=== PATIENT | female | born 1970 | race Caucasian/White ===

== ENCOUNTER 2022-07-17 18:01 | Emergency (ER) | payer SELFPAY ==
--- NOTE | 2022-07-17 18:04 | XRR_ITS ---
PROCEDURE INFORMATION: Exam: XR Chest Exam date and time: 07/17/2022 6:16 PM Age: 52 years old Clinical indication: Chest wall pain; Additional info: Cp TECHNIQUE: Imaging protocol: Radiologic exam of the chest. Views: 1 view. COMPARISON: No relevant prior studies available. FINDINGS: Lungs: Unremarkable. No consolidation. Pleural spaces: Unremarkable. No pleural effusion. No pneumothorax. Heart/Mediastinum: Unremarkable. No cardiomegaly. Bones/joints: Unremarkable. XR/XR chest 1V portable [id number] IMPRESSION: No acute findings.
[2022-07-17 18:05] VITALS: BP 151/86; PULSE 92; RESP 18; TEMP 36.7; O2SAT 97; BMI 31.3
--- NOTE | 2022-07-17 18:07 | ECG_ITS ---
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 Measurements Intervals [place] Rate: 91 P: 114 NE: 162 QRS: 90 QRSD: 89 T: 134 QT: 366 QTc: 451 Interpretive Statements SINUS RHYTHM No previous ECG available for comparison Electronically Signed On 07-17-2022 20:26:22 CDT by Yaquelin Zuñiga M.D. [id number]
[2022-07-17 18:19] LABS: Basophils # 0.1 10^3/uL (0.0-0.1); Basophils % 0.7 %; Eosinophils # 0.5 10^3/uL (0.0-0.8); Eosinophils % 5.6 %; Hematocrit 43.1 % (37.0-47.0); Hemoglobin 14.1 g/dL (11.5-15.3); Lymphocytes # 3.8 10^3/uL (0.8-4.8); Lymphocytes % 41.7 %; Mean Corpuscular HGB Conc 32.7 g/dL (30.0-36.0); Mean Corpuscular Hemoglobin 31.5 pg (28.0-34.0); Mean Corpuscular Volume 96.4 fl (81-99); Mean Platelet Volume 9.8 fL (7.4-10.4); Monocytes # 0.6 10^3/uL (0.2-0.9); Neutrophils # 4.04 10^3/uL (1.8-7.7); Neutrophils % 44.7 %; Nucleated Red Blood Cells % 0 %; Platelet Count 292 10^3/cmm (130-400); Red Blood Count 4.47 10^6/uL (4.1-5.3); Red Cell Distribution Width 13.1 % (12.1-15.1)
--- NOTE | 2022-07-17 18:21 | W.ED.CHESTPA ---
HPI - Chest Pain General: Chief Complaint: Chest Pain Stated Complaint: CHEST PAIN Time Seen by Provider: 07/17/22 18:04 Source: patient and EMS Mode of arrival: EMS Limitations: no limitations History of Present Illness: 52-year-old female states she started having chest pain roughly 30 minutes ago. States it was a very sharp pain in the center of her chest region is an 8 out of 10 states it is now a 2 out of 10 she did receive aspirin in route denies any shortness of breath she has no heart history she is a smoker. Denies any diaphoresis or nausea. Associated symptoms: Deny abdominal pain, dyspnea, fever(s), nausea or vomiting Review of Systems Const: Denies: fever(s), chills, body aches or change in appetite Eyes: Denies: blurry vision or eye discomfort ENMT: Denies: throat pain or dental pain Card: Reports: chest pain Resp: Denies: dyspnea GI: Denies: abdominal pain, nausea, vomiting or diarrhea : Denies: dysuria Musc: Denies: neck pain or back pain Skin/Breast: Denies: rash Neuro: Denies: headache(s) Psych: Denies: depression Alfie/Lymph: Denies: easy bruising All/Imm: Denies: urticaria PFSH ED PFSH: Medical History (Updated 07/17/22 @ 20:21 by Yulia Sagastume MD) No pertinent past medical history Social History (Updated 07/17/22 @ 18:22 by Yulia Sagastume MD) Substance/Drug Use: never Physical Exam Const: COMMON NORMALS: no acute distress, patient oriented x3 and healthy appearing HENMT: COMMON NORMALS: normocephalic and atraumatic HEAD & SCALP: normocephalic and atraumatic Eye: COMMON NORMALS: Equal, round and reactive pupils present and EOMs intact bilaterally PUPIL: Yes Equal, round and reactive pupils present Neck/C-Spine: COMMON NORMALS: full ROM and supple Chest: COMMONS NORMALS: normal inspection of the chest and normal palpation of entire chest wall Resp: COMMON NORMALS: normal respiratory effort, No retractions, No use of accessory muscles and clear to auscultation bilaterally AUSCULTATION: clear to auscultation bilaterally Cardio: COMMON NORMALS: regular rate, regular rhythm and No murmurs present (Cardio) RATE: regular rate RHYTHM: regular rhythm GI: COMMON NORMALS: Normal to inspection, nondistended, normoactive bowel sounds present, Soft to palpation, non-tender and no masses PALPATION: Yes Soft to palpation Extremity: COMMON NORMALS: normal to inspection and full ROM Neuro: COMMON NORMALS: patient oriented x3, moves all extremities and no focal motor deficits Psych: COMMON NORMALS: mental status grossly normal, Normal thought process present and cooperative THOUGHT PROCESS: Normal thought process present Skin: COMMON NORMALS: no rashes or lesions noted and no wounds GENERAL SKIN EXAM: no rashes or lesions noted Course Vital Signs: Vital signs: Vital Signs Temperature 98.0 F 07/17/22 18:05 Pulse Rate 92 07/17/22 20:13 Respiratory Rate 18 07/17/22 20:13 Blood Pressure 145/87 07/17/22 20:13 Pulse Oximetry 97 07/17/22 20:13 Oxygen Delivery Me thod 07/17/22 18:05 MDM - Chest Pain Medical Decision Making Patient presents here with chest pains atypical in nature its been resolved here her initial repeat troponin here negative she has no signs of dissection pulmonary embolism or acute coronary syndrome I did speak to her about the findings she feels much improved would like to go home she is stable for discharge we will get her follow-up with cardiology she is return if worsening. Lab Data : 07/17/22 17:55 07/17/22 17:55 Radiology Impressions Chest X-Ray 07/17/22 18:04 IMPRESSION: No acute findings. Laboratory Results WBC 9.0 10^3/uL (4.0-10.0) 07/17/22 17:55 RBC 4.47 10^6/uL (4.1-5.3) 07/17/22 17:55 Hgb 14.1 g/dL (11.5-15.3) 07/17/22 17:55 Hct 43.1 % (37.0-47.0) 07/17/22 17:55 MCV 96.4 fl (81-99) 07/17/22 17:55 MCH 31.5 pg (28.0-34.0) 07/17/22 17:55 MCHC 32.7 g/dL (30.0-36.0) 07/17/22 17:55 RDW 13.1 % (12.1-15.1) 07/17/22 17:55 Plt Count 292 10^3/cmm (130-400) 07/17/22 17:55 MPV 9.8 fL (7.4-10.4) 07/17/22 17:55 Neut % (Auto) 44.7 % 07/17/22 17:55 Lymph % (Auto) 41.7 % 07/17/22 17:55 [place] % (Auto) 7.0 % 07/17/22 17:55 Eos % (Auto) 5.6 % 07/17/22 17:55 Baso % (Auto) 0.7 % 07/17/22 17:55 Neut # (Auto) 4.04 10^3/uL (1.8-7.7) 07/17/22 17:55 Lymph # (Auto) 3.8 10^3/uL (0.8-4.8) 07/17/22 17:55 [place] # (Auto) 0.6 10^3/uL (0.2-0.9) 07/17/22 17:55 Eos # (Auto) 0.5 10^3/uL (0.0-0.8) 07/17/22 17:55 Baso # (Auto) 0.1 10^3/uL (0.0-0.1) 07/17/22 17:55 Nucleated RBC % (auto) 0 % 07/17/22 17:55 Nucleated RBCs # 0.0 /100WBC 07/17/22 17:55 Sodium 140 mmol/L (136-145) 07/17/22 17:55 Potassium 3.8 mmol/L (3.5-5.1) 07/17/22 17:55 Chloride 102 mmol/L (98-107) 07/17/22 17:55 Carbon Dioxide 28 mmol/L (22-29) 07/17/22 17:55 Anion Gap 13.8 (5-19) 07/17/22 17:55 BUN 14 mg/dL (6-20) 07/17/22 17:55 Creatinine 1.1 mg/dL (0.5-0.9) H 07/17/22 17:55 GFR Calculation 52.6 mL/min (90-130) L 07/17/22 17:55 Glucose 107 mg/dL (65-115) 07/17/22 17:55 Calculated Osmolality 291 mOsm/kg (285-295) 07/17/22 17:55 Calcium 9.1 mg/dL (8.5-10.5) 07/17/22 17:55 Total Bilirubin 0.2 mg/dL (0.15-1.2) 07/17/22 17:55 AST 29 U/L (0-32) 07/17/22 17:55 ALT 47 U/L (0-33) H 07/17/22 17:55 Alkaline Phosphatase 97 U/L (35-105) 07/17/22 17:55 Troponin T Baseline 6 ng/L (0-10) 07/17/22 17:55 Troponin T 120 Minute 6.00 ng/L (0-10) 07/17/22 19:54 Total Protein 7.2 g/dL (6.6-8.7) 07/17/22 17:55 Albumin 4.1 g/dL (3.5-5.2) 07/17/22 17:55 Globulin 3.1 g/dL (1.3-4.6) 07/17/22 17:55 Lipase 33 U/L (13-60) 07/17/22 17:55 EKG Data EKG 1: I personally reviewed and interpreted this EKG as follows: EKG interpretation date: 07/17/22 EKG interpretation time: 18:07 Interpretation: nsr hr [address] or t wave abnormalities qrs 89 qtc 415 EKG 2: I personally reviewed and interpreted this EKG as follows: EKG interpretation date: 07/17/22 EKG interpretation time: 20:02 Interpretation: nsr hr [address] or t wave abnormalities qrs 97 qtc 424 Discharge Plan Discharge Patient Disposition: Home Clinical Impression: Chest pain Discharge Orders: Discharge ED (Routine); Ordered 07/17/22 Ordered By: Yulia Sagastume Referrals: Tan Wood MD [Physician] - 1-3 days Discharge Diet: Advance as tolerated Discharge Activity: Resume usual activity Patient Instructions: Chest Pain (ED) Coding Level of Care Code ED Carpet Layer Helper for Chg Fwd Exam Comprehensive
[2022-07-17 18:52] VITALS: BP 125/81; PULSE 88; RESP 18; O2SAT 95
[2022-07-17 18:55] LABS: Alanine Aminotransferase 47 U/L (0-33); Albumin Level 4.1 g/dL (3.5-5.2); Alkaline Phosphatase 97 U/L (35-105); Anion Gap 13.8 (5-19); Aspartate Amino Transferase 29 U/L (0-32); Blood Urea Nitrogen 14 mg/dL (6-20); Calcium 9.1 mg/dL (8.5-10.5); Carbon Dioxide 28 mmol/L (22-29); Chloride 102 mmol/L (98-107); Globulin 3.1 g/dL (1.3-4.6); Glomerular Filtration Rate 52.6 mL/min (90-130); Glucose 107 mg/dL (65-115); Lipase 33 U/L (13-60); Osmolality Calculated 291 mOsm/kg (285-295); Potassium 3.8 mmol/L (3.5-5.1); Sodium 140 mmol/L (136-145); Total Bilirubin 0.2 mg/dL (0.15-1.2); Total Protein 7.2 g/dL (6.6-8.7)
[2022-07-17 19:00] LABS: Troponin(5th) Baseline 6 ng/L (0-10)
[2022-07-17 19:25] VITALS: BP 134/82; PULSE 88; RESP 18; O2SAT 97
[2022-07-17 19:50] VITALS: BP 149/90; PULSE 81; RESP 18; O2SAT 97
--- NOTE | 2022-07-17 20:04 | ECG_ITS ---
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 Measurements Intervals [place] Rate: 76 P: 73 IA: 168 QRS: 89 QRSD: 97 T: 62 QT: 394 QTc: 444 Interpretive Statements SINUS RHYTHM Compared to ECG 07/17/2022 18:07:01 No significant changes Electronically Signed On 07-17-2022 20:34:20 CDT by Yaquelin Zuñiga M.D. [id number]
[2022-07-17 20:13] VITALS: BP 145/87; PULSE 92; RESP 18; O2SAT 97
[2022-07-17 20:25] LABS: Troponin 5 2HR Delta 0 ABS# (0-10)
[2022-07-17 20:30] VITALS: BP 136/87; PULSE 77; RESP 18; O2SAT 95
--- NOTE | 2022-07-18 12:47 | DCPLANNER ---
Addendum entered by Melisa Bruno 10/12/22 14:19: Patient had a follow up appointment scheduled with heart care - patient did not attend appointment. Addendum entered by Melisa Bruno 07/20/22 12:54: Patient has a follow up appointment scheduled for September at 3:[address] Wood at [facility]. Clinic will call patient with appointment information. Original Note: production service manager had message to schedule a follow up appointment for patient with cardiology. production service manager sent patients information to the front office staff at [facility]. Patients information will be printed and reviewed. Clinic will call patient with appointment information.
== END 2022-07-17 20:31 | disposition home or self-care (01) ==
PROVIDERS: Emergency Provider Emergency Medicine
DX: R07.89 Other chest pain (principal)
CPT/HCPCS: 36415; 71045; 80053; 83690; 84484; 85025; 93005; 99285